=== PATIENT | male | born 1950 | race Caucasian/White ===

== ENCOUNTER 2021-09-28 10:26 | Day surgery (SDC) | payer MEDICARE, SELFPAY ==
[2021-07-28 11:49] VITALS: BMI 38.0
[2021-09-12 13:15] VITALS: BMI 36.1
--- NOTE | 2021-09-27 14:04 | WPDANESEPPF ---
Anes - Initial Pre Proc Eval Procedure: Operation Date: 09/28/21 12:00 Proposed Procedures p Screening Colonoscopy - Steven Kingston MD Date/Time: 09/27/21 14:04 Surgeon: Steven Kingston MD Pre Op Diagnosis: Neoplasm Screening Patient Data Age: 71 Gender: M Height: 1.75 m Weight: 111 kg Allergies Allergy/AdvReac Type Severity Reaction Status Date / Time lisinopril AdvReac Unknown cough Verified 09/28/21 10:52 Home Medications Medication Instructions Recorded Confirmed Type aspirin 81 mg tablet,delayed 81 mg PO DAILY 03/06/19 09/28/21 History release (Adult Low Dose Aspirin) multivitamin,[id number] 1 tablet PO DAILY 03/06/19 09/28/21 History (Complete Multivitamin tablet) triamcinolone acetonide 0.1 % 1 applic topical BID PRN Rash 03/06/19 09/28/21 History topical cream subcutaneous insulin pump (t:slim #1 ea 06/17/19 08/16/21 History Insulin Delivery System) vitamin B comp and C no.3 15 mg-10 1 cap PO DAILY 06/17/19 09/28/21 History mg-50 mg-5 mg-300 mg capsule (B Complex Plus Vitamin C) glucagon 1 mg/0.2 mL subcutaneous 1 mg (0.2 mL) subcut ONCE PRN 02/23/20 09/28/21 Rx auto-injector (Gvoke HypoPen hypoglycemia #0.2 mL 1-Pack) blood sugar diagnostic (OneTouch See Rx Instructions .Route 05/24/20 09/28/21 Rx Verio test strips) .COMPLEX #750 ea blood-glucose sensor (Dexcom G6 #9 ea 08/31/20 08/16/21 Rx Sensor device) blood-glucose transmitter (Dexcom #1 ea 08/31/20 08/16/21 Rx G6 Transmitter device) atorvastatin 10 mg tablet See Rx Instructions .Route 10/25/20 09/28/21 Rx .COMPLEX #90 tabs losartan 50 mg tablet See Rx Instructions .Route 05/04/21 09/28/21 Rx .COMPLEX #90 tabs insulin lispro 100 unit/mL 100 unit continuous subcutaneous 08/16/21 09/28/21 Rx subcutaneous solution infusion DAILY 90 days #90 mL latanoprost 0.005 % eye drops 1 drp EACH EYE DAILY 08/16/21 09/28/21 History gabapentin 300 mg capsule See Rx Instructions .Route 08/22/21 09/28/21 Rx .COMPLEX #90 caps doxycycline monohydrate 100 mg 100 mg PO DAILY PRN Rash 09/12/21 09/28/21 History tablet Patient hx anesthesia problems: none Family hx anesthesia problems: none Results Review: All pre-operative results and documents have been reviewed as part of the pre-operative evaluation. [facility] Past Medical History Medical History Cataract (lens) fragments in eye following cataract surgery, bilateral Cataracts, both eyes Cholecystectomy planned [place] Controlled diabetes mellitus with hyperglycemia, with long-term current use of insulin Glaucoma Hearing loss Hyperlipidemia LDL goal <100 Hypertension Neuropathy Obesity Rosacea Type 1 diabetes, controlled, with neuropathy Surgical History Surgical History Hx of eye surgery for cataracts Hx of tonsillectomy Family History Family History Other Cerebrovascular accident Diabetes mellitus Family history of cataracts Family history of hearing loss Social History Social History Smoking status: Never smoker Alcohol intake: never Substance use: never Substance use type: does not use Living arrangements: with family Spiritual care concerns: No Anes - Eval Final PreProcedure Day of Procedure 09/27/21 14:04 Patient weight: obese Heart: regular rate and rhythm Lungs: clear to auscultation Airway: Mallampati scale class II Neurological: alert and oriented Last oral intake: >/= 8 hours ASA classification: III Emergent: no Anesthetic plan: proceed Anesthesia type and monitoring: general GIVS and standard monitoring Results Review: All pre-operative results and documents have been reviewed as part of the pre-operative evaluation. Informed Consent:
--- NOTE | 2021-09-27 16:00 | PM.HPGS ---
History of Present Illness History of Present Illness Consent: Risks, benefits, and alternatives have been discussed and questions answered. Patient agrees to proceed with procedure. Chief complaint: Neoplasm Screening Narrative: Gwyn Denney is a 71 year old male Referred for colon cancer Review of Systems Review of Systems: All systems reviewed & are unremarkable except as noted in HPI and below PMFSH Past Medical History Medical History Cataract (lens) fragments in eye following cataract surgery, bilateral Cataracts, both eyes Cholecystectomy planned [place] Controlled diabetes mellitus with hyperglycemia, with long-term current use of insulin Glaucoma Hearing loss Hyperlipidemia LDL goal <100 Hypertension Neuropathy Obesity Rosacea Type 1 diabetes, controlled, with neuropathy Surgical History Surgical History Hx of eye surgery for cataracts Hx of tonsillectomy Family History Family History Other Cerebrovascular accident Diabetes mellitus Family history of cataracts Family history of hearing loss Social History Social History Smoking status: Never smoker Alcohol intake: never Substance use: never Substance use type: does not use Living arrangements: with family Spiritual care concerns: No Meds Home Medications and Allergies Home Medications Medication Instructions Recorded Confirmed Type aspirin 81 mg tablet,delayed 81 mg PO DAILY 03/06/19 09/28/21 History release (Adult Low Dose Aspirin) multivitamin,[id number] 1 tablet PO DAILY 03/06/19 09/28/21 History (Complete Multivitamin tablet) triamcinolone acetonide 0.1 % 1 applic topical BID PRN Rash 03/06/19 09/28/21 History topical cream subcutaneous insulin pump (t:slim #1 ea 06/17/19 08/16/21 History Insulin Delivery System) vitamin B comp and C no.3 15 mg-10 1 cap PO DAILY 06/17/19 09/28/21 History mg-50 mg-5 mg-300 mg capsule (B Complex Plus Vitamin C) glucagon 1 mg/0.2 mL subcutaneous 1 mg (0.2 mL) subcut ONCE PRN 02/23/20 09/28/21 Rx auto-injector (Gvoke HypoPen hypoglycemia #0.2 mL 1-Pack) blood sugar diagnostic (OneTouch See Rx Instructions .Route 05/24/20 09/28/21 Rx Verio test strips) .COMPLEX #750 ea blood-glucose sensor (Dexcom G6 #9 ea 08/31/20 08/16/21 Rx Sensor device) blood-glucose transmitter (Dexcom #1 ea 08/31/20 08/16/21 Rx G6 Transmitter device) atorvastatin 10 mg tablet See Rx Instructions .Route 10/25/20 09/28/21 Rx .COMPLEX #90 tabs losartan 50 mg tablet See Rx Instructions .Route 05/04/21 09/28/21 Rx .COMPLEX #90 tabs insulin lispro 100 unit/mL 100 unit continuous subcutaneous 08/16/21 09/28/21 Rx subcutaneous solution infusion DAILY 90 days #90 mL latanoprost 0.005 % eye drops 1 drp EACH EYE DAILY 08/16/21 09/28/21 History gabapentin 300 mg capsule See Rx Instructions .Route 08/22/21 09/28/21 Rx .COMPLEX #90 caps doxycycline monohydrate 100 mg 100 mg PO DAILY PRN Rash 09/12/21 09/28/21 History tablet Allergies Allergy/AdvReac Type Severity Reaction Status Date / Time lisinopril AdvReac Unknown cough Verified 09/28/21 10:52 Exam Const: General: alert Orientation/consciousness: patient oriented x3 Resp: Auscultation: clear to auscultation bilaterally Cardio: Rhythm: regular rhythm GI: GI Palp: Yes Soft to palpation and No Tenderness to palpation present (GI) Neuro: General: patient oriented x3 Assessment and Plan Assessment and plan (1) Screening for colon cancer: Code(s): Z12.11 - Encounter for screening for malignant neoplasm of colon Status: Acute Assessment and Plan: Colonoscopy with possible biopsy or polypectomy or cautery or injection of substances.
[2021-09-28 10:50] VITALS: BP 146/72; PULSE 64; RESP 20; TEMP 36.8; O2SAT 99
[2021-09-28 10:57] VITALS: BMI 37.3
[2021-09-28] MEDS: LACTATED RINGERS 1,000 ML 150 ML IV CONT (11:00)
[2021-09-28 11:05] LABS: Glucose Point of Care 87 mg/dl (65-105)
[2021-09-28 12:13] VITALS: BP 121/56; PULSE 56; RESP 14; O2SAT 97
[2021-09-28 12:23] VITALS: BP 132/63; PULSE 52; RESP 14; O2SAT 100
[2021-09-28 12:33] VITALS: BP 130/68; PULSE 53; RESP 14; O2SAT 99
--- NOTE | 2021-09-28 12:59 | WPDANESPN ---
Anes - Prog Note Post-Op Date/Time: 09/28/21 12:59 Cardiovascular status: normal Respiratory status: normal Airway patency: baseline Mental status: baseline Post-Op hydration status: normal Vital Signs: Last Vital Signs Temp 36.8 C 09/28/21 10:50 Pulse 53 L 09/28/21 12:33 Resp 14 09/28/21 12:33 BP 130/68 09/28/21 12:33 Pulse Ox 99 09/28/21 12:33 O2 Del Method Room Air 09/28/21 12:23 Pain Score (VAS): 0 I/O: Intake & Output 09/27/21 09/28/21 09/28/21 23:59 07:59 15:59 Intake Total 300 Balance 300 09/28/21 11:03 POC Capillary Glucose 87 Post-procedural complaints: none Patient Feedback: Patient satisfied with anesthetic care. Other Findings: Patient vital signs back to baseline. Patient denies nausea and vomiting. Patient's pain under control. Patient OK for discharge.
== END 2021-09-28 12:51 | disposition home or self-care (01) ==
PROVIDERS: PCP Family Medicine; Visit Provider Internal Medicine Gastroenterology
PROC: 0DJD8ZZ Inspection of Lower Intestinal Tract, Via Natural or Artificial Opening Endoscopic (ICD-10-PCS; CPT 45378; principal; 2021-09-28 12:00)
DX: Z12.11 Encounter for screening for malignant neoplasm of colon (principal)
CPT/HCPCS: 45378

== ENCOUNTER 2022-08-11 13:57 | Emergency (ER) | payer MEDICARE, SELFPAY ==
--- NOTE | 2022-08-11 14:18 | ED.URI ---
HPI - URI/Sore Throat General Chief Complaint: Upper Respiratory Infection Stated Complaint: Cough, Headaches Time Seen by Provider: 08/11/22 14:18 Source: patient Mode of arrival: ambulatory Limitations: no limitations History of Present Illness HPI Narrative: 72-year-old male presents with complaint of nasal congestion, sinus pressure, cough for 12 days. Saw his primary care physician over a week ago regarding symptoms and was told was caused by allergies. Was told to take Mucinex. Patient does not take any daily allergy medication. Afebrile. No chest pain or shortness of breath. Took COVID test 1 week ago and it was negative. All systems reviewed and negative except as noted above. Related Data Home Medications Medication Instructions Recorded Confirmed aspirin 81 mg tablet,delayed 81 mg PO DAILY 03/06/19 08/11/22 release (Adult Low Dose Aspirin) multivitamin,[id number]-[id number] 1 tablet PO DAILY 03/06/19 08/11/22 (Complete Multivitamin tablet) triamcinolone acetonide 0.1 % 1 applic topical BID PRN Rash 03/06/19 08/11/22 topical cream subcutaneous insulin pump (t:slim #1 ea 06/17/19 08/02/22 Insulin Delivery System) vitamin B comp and C no.3 15 mg-10 1 cap PO DAILY 06/17/19 08/11/22 mg-50 mg-5 mg-300 mg capsule (B Complex Plus Vitamin C) latanoprost 0.005 % eye drops 1 drp EACH EYE DAILY 08/16/21 08/11/22 doxycycline monohydrate 100 mg 100 mg PO DAILY PRN Rash 09/12/21 08/02/22 tablet magnesium 250 mg tablet 500 mg PO DAILY 06/01/22 08/11/22 timolol maleate 0.5 % eye drops 1 drp EACH EYE DAILY 06/01/22 08/11/22 Allergies Allergy/AdvReac Type Severity Reaction Status Date / Time lisinopril AdvReac Unknown cough Verified 08/11/22 14:13 Review of Systems Review of Systems: CONSTITUTIONAL: Denies fever, chills, or sweats. EYES: Denies visual changes, redness, or discharge. ENT: Reports rhinorrhea, congestion, sinus pressure. Denies sore throat, or otalgia. CARDIOVASCULAR: Denies chest pain, palpitations, or edema. RESPIRATORY: Reports cough. Denies dyspnea. GASTROINTESTINAL: Denies abdominal pain, nausea, vomiting, or diarrhea. GENITOURINARY: Denies dysuria or hematuria. SKIN: Denies rash or itching. MUSCULOSKELETAL: Denies back pain, joint pain, or myalgia. NEUROLOGIC: Denies headache, numbness, or weakness. PSYCHIATRIC: Denies anxiety or depression. All other systems reviewed are negative, except as documented in HPI. [facility] Past Medical History Medical History Cataract (lens) fragments in eye following cataract surgery, bilateral Cataracts, both eyes Cholecystectomy planned [place] Controlled diabetes mellitus with hyperglycemia, with long-term current use of insulin Glaucoma Hearing loss Hyperlipidemia LDL goal <100 Hypertension Neuropathy Obesity Rosacea Type 1 diabetes, controlled, with neuropathy Surgical History Surgical History History of cholecystectomy 2007 Hx of eye surgery 08/2013, for cataract removal Hx of tonsillectomy 1958 S/P tendon repair 1984, right finger Family History Family History Other Cerebrovascular accident Diabetes mellitus Family history of cataracts Family history of hearing loss Social History Social History Social History: Caffeine-occasional soda Smoking status: Never smoker Alcohol intake: never Substance use: never Substance use type: does not use Lack of Transportation: No Lack of Food: Never True Current Housing: I Have Housing Concerned About Future Housing: No Difficulty Paying Gas/Electric Bills: No Difficulty Paying for Meds: No Currently Unemployed: No Education: High School Diploma/GED Difficulty w/ Childcare or Family Care: No Living arrangements: with family
[2022-08-11 14:20] VITALS: BP 151/63; PULSE 69; RESP 16; TEMP 36.6; O2SAT 99
== END 2022-08-11 14:32 | disposition home or self-care (01) ==
PROVIDERS: Emergency Provider Nurse Practitioner Family; PCP Family Medicine
DX: J01.90 Acute sinusitis, unspecified (principal); E78.5 Hyperlipidemia, unspecified; I10 Essential (primary) hypertension; E10.39 Type 1 diabetes mellitus with other diabetic ophthalmic complication; H40.9 Unspecified glaucoma; H42 Glaucoma in diseases classified elsewhere; E10.40 Type 1 diabetes mellitus with diabetic neuropathy, unspecified; Z79.4 Long term (current) use of insulin; E66.9 Obesity, unspecified; Z68.38 Body mass index [BMI] 38.0-38.9, adult
CPT/HCPCS: 99213; G0463

== ENCOUNTER 2023-08-21 03:37 | Emergency (ER) | payer MEDICARE, SELFPAY ==
--- NOTE | ~2023-08-21 | XR_ITS ---
Clinical Indication: Chest pain PA and lateral views of the chest: Comparison: 09/30/2018 Findings: The lungs are clear, without evidence of focal consolidation or pleural effusion. Cardiome diastinal silhouette is within normal limits. Bones and soft tissues are unremarkable. Impression: Normal chest. Reviewed, dictated and finalized at location . Impression: Normal chest.
[2023-08-21 03:39] VITALS: BP 150/68; PULSE 66; RESP 15; TEMP 36.3; O2SAT 100
--- NOTE | 2023-08-21 03:40 | ECG_ITS ---
Test Date: 2023-08-21 03:44:34 Measurements Intervals [place] Rate: 66 P: 55 GA: 202 QRS: 24 QRSD: 105 T: 18 QT: 388 QTc: 408 Interpretive Statements SINUS RHYTHM MINIMAL Q WAVES- INFERIOR LEADS BORDERLINE ECG No previous ECG available for comparison Electronically Signed On 08-21-2023 06:28:03 CDT by Alberto Blanton D.O.
[2023-08-21] MEDS: ASPIRIN 81 MG CHEWABLE TABLET 324 MG PO (03:53)
[2023-08-21 03:54] VITALS: PULSE 71; O2SAT 98
[2023-08-21 04:18] LABS: Basophils Absolute Auto 0.1 K/mm3 (0.0-0.1); Basophils Percent Auto 0.4 % (0.2-1.2); Eosinophils Absolute Auto 0.3 K/mm3 (0-0.3); Eosinophils Percent Auto 2.9 % (0-4.4); Hematocrit 42.2 % (42.0-52.0); Hemoglobin 13.2 g/dL (14.0-18.0); Immature Granulocyte Absolute 0.04 K/mm3 (0.00-0.031); Immature Granulocyte Percent A 0.4 % (0-0.5); Lymphocytes Absolute Auto 2.01 K/mm3 (0.9-3.2); Lymphocytes Percent Auto 17.9 % (18.3-44.2); Mean Corpuscular HGB Conc 31.3 g/dl (32-36); Mean Corpuscular Hemoglobin 27.1 pg (26-34); Mean Corpuscular Volume 86.7 fl (80-100); Monocytes Percent Auto 9.2 % (2.6-8.5); Neutrophils Absolute Auto 7.8 K/mm3 (1.3-6.7); Neutrophils Percent Auto 69.2 % (45.5-73.1); Platelet Count Result 225 k/mm3 (150-375); Red Blood Count 4.87 M/mm3 (4.6-6.20); Red Cell Distribution Width 16.5 % (11.5-14.5); White Blood Count 11.2 K/mm3 (4.5-10.0)
[2023-08-21 04:30] LABS: INR 0.9; Partial Thromboplastin Time 25.7 Seconds (22.3-36.8)
[2023-08-21 04:50] LABS: Alanine Aminotransferase 33 U/L (6-50); Albumin Level 4.3 g/dL (3.5-5.1); Alkaline Phosphatase 72 U/L (38-126); Anion Gap 7 mmol/L (4-12); Aspartate Amino Transferase 47 U/L (17-59); Bilirubin,Total 0.8 mg/dL (0.2-1.3); Blood Urea Nitrogen 23 mg/dL (9-20); Carbon Dioxide 31 mmol/L (22-30); Chloride 101 mmol/L (98-107); Estimated CRCL calculation 85 ml/min; Estimated Glomerular Filt Rate > 60; Glucose 125 mg/dL (65-110); Lipase 55 U/L (23-300); Sodium 139 mmol/L (137-145)
[2023-08-21] MEDS: BELLADONNA ALK/PHENOB ELIX 10 ML, MAG HYDROX/ALUMINUM HYD/SIMETH 30 ML, LIDOCAINE HCL 2... PO (04:54)
[2023-08-21 05:02] LABS: Troponin I < 0.012 ng/mL (0.000-0.034)
--- NOTE | 2023-08-21 05:33 | ED.GENADULT ---
HPI - General Adult General Chief complaint: Chest Pain Stated complaint: CP Time Seen by Provider: 08/21/23 04:03 History of Present Illness HPI narrative: Patient 73-year-old gentleman presents emergency department chief complaint of chest discomfort. Patient reports that he went to sleep around midnight woke up with pain described feels like heaviness or tightness like indigestion feeling in his chest patient reports no prior history of cardiac disease is an insulin-dependent diabetic. Patient has history of hypertension patient reports that he is not sure if her when he has had a stress test. Related Data Home Medications Medication Instructions Recorded Confirmed aspirin 81 mg tablet,delayed 81 mg PO DAILY 03/06/19 08/01/23 release (Adult Low Dose Aspirin) multivitamin,[id number] 1 tablet PO DAILY 03/06/19 08/01/23 (Complete Multivitamin tablet) triamcinolone acetonide 0.1 % 1 applic topical BID PRN Rash 03/06/19 08/01/23 topical cream subcutaneous insulin pump (t:slim #1 ea 06/17/19 08/01/23 Insulin Delivery System) vitamin B comp and C no.3 15 mg-10 1 cap PO DAILY 06/17/19 08/01/23 mg-50 mg-5 mg-300 mg capsule (B Complex Plus Vitamin C) latanoprost 0.005 % eye drops 1 drp EACH EYE DAILY 08/16/21 08/01/23 magnesium 250 mg tablet 500 mg PO DAILY 06/01/22 08/01/23 timolol maleate 0.5 % eye drops 1 drp EACH EYE DAILY 06/01/22 08/01/23 Allergies Allergy/AdvReac Type Severity Reaction Status Date / Time lisinopril AdvReac Unknown cough Verified 08/01/23 11:07 Review of Systems Review of Systems: A 10 system review of systems was completed on the patient and is negative except for what is stated in the HPI. Nursing and ancillary documentation was reviewed. [facility] Past Medical History Medical History Cataract (lens) fragments in eye following cataract surgery, bilateral Cataracts, both eyes Cholecystectomy planned [place] Controlled diabetes mellitus with hyperglycemia, with long-term current use of insulin Glaucoma Hearing loss Hyperlipidemia LDL goal <100 Hypertension Neuropathy Obesity Rosacea Type 1 diabetes, controlled, with neuropathy Surgical History Surgical History History of cholecystectomy 2007 Hx of eye surgery 08/2013, for cataract removal Hx of tonsillectomy 1958 S/P tendon repair 1984, right finger Family History Family History Other Cerebrovascular accident Diabetes mellitus Family history of cataracts Family history of hearing loss Social History Social History Social History: Caffeine-occasional soda Smoking status: Never smoker Alcohol intake: never Substance use: never Substance use type: does not use Do You Feel Safe in your Home?: Yes Lack of Transportation: No Lack of Food: Never True Current Housing: I Have Housing Concerned About Future Housing: No Difficulty Paying Gas/Electric Bills: No Difficulty Paying for Meds: No Currently Unemployed: No Education: High School Diploma/GED Difficulty w/ Childcare or Family Care: No Living arrangements: with family Spiritual care concerns: No Exam Narrative: GENERAL: Well-appearing, well-nourished, and in no acute distress. HEAD: Normocephalic, atraumatic. EYES: PERRLA and EOMI. ENT: Nares clear, no rhinorrhea or epistaxis. Mucous membranes moist. NECK: Supple. CHEST: Clear to auscultation. No respiratory distress. HEART: Regular rate and rhythm. No murmur heard. Normal peripheral pulses. ABDOMEN: Soft, nontender, nondistended, normal active bowel sounds. EXTREMITIES: Normal range of motion. No edema. SKIN: Warm, dry, no rash. NEURO: No focal deficits. Alert and oriented x3. PSYCH: Normal mood and affect.
--- NOTE | 2023-08-21 06:52 | ECG_ITS ---
Test Date: 2023-08-21 07:00:41 Measurements Intervals [place] Rate: 61 P: 29 OR: 195 QRS: 31 QRSD: 109 T: 30 QT: 403 QTc: 407 Interpretive Statements SINUS RHYTHM MINIMAL Q WAVES- INFERIOR LEADS BASELINE WANDER- I, V2 BORDERLINE ECG Compared to ECG 08/21/2023 03:44:34 No significant changes Electronically Signed On 08-21-2023 07:14:36 CDT by Alberto Blanton D.O.
[2023-08-21 07:48] VITALS: BP 132/64; PULSE 58; RESP 19; O2SAT 100
[2023-08-21 07:54] LABS: Troponin I < 0.012 ng/mL (0.000-0.034)
[2023-08-21 08:05] VITALS: BP 132/64; PULSE 59; RESP 17; TEMP 36.4; O2SAT 100
== END 2023-08-21 08:08 | disposition home or self-care (01) ==
PROVIDERS: Emergency Provider Emergency Medicine; PCP Family Medicine
DX: R07.9 Chest pain, unspecified (principal); H26.9 Unspecified cataract; Z79.4 Long term (current) use of insulin; E78.5 Hyperlipidemia, unspecified; I10 Essential (primary) hypertension; E10.9 Type 1 diabetes mellitus without complications
CPT/HCPCS: 36415; 71046; 80053; 83690; 84484; 85025; 85610; 85730; 93005; 99284; A9270